=== PATIENT | female | born 1940 | race Caucasian/White ===

== ENCOUNTER 2022-02-19 16:32 | Emergency (ER) | payer MEDICARE, OTHER ==
[~2022-02-19 16:32] MED LIST: PROAIR HFA8.5 GM INH; UNIPHYL 400 MG400 MG PO
[2022-02-19 17:42] LABS: HEMOGLOBIN 15.3 gm/dl (12.3-15.3); RED BLOOD COUNT 5.08 M/UL (4.00-5.10); WHITE BLOOD COUNT 9.2 K/UL (4.5-11.0)
[2022-02-19 18:00] LABS: BUN/CREATININE RATIO 20 (0-10)
== END 2022-02-19 19:05 | disposition home or self-care (01) ==
LOC: ER1 16:32
DX: L84 Corns and callosities (principal); E11.9 Type 2 diabetes mellitus without complications; J44.9 Chronic obstructive pulmonary disease, unspecified; Z88.2 Allergy status to sulfonamides; Z91.048 Other nonmedicinal substance allergy status; Z88.0 Allergy status to penicillin
CPT/HCPCS: 80053; 85025; 99283